=== PATIENT | male | born 1975 | race Caucasian/White ===

== ENCOUNTER 2017-10-07 12:12 | Emergency (ER) | payer OTHER ==
[~2017-10-07] VITALS: Ht 177.8 cm; Wt 88.5 kg
[2017-10-07 12:27] VITALS: BP 137/92
--- NOTE | 2017-10-07 12:32 | ER.PDOC ---
General Chief Complaint: General Complaint Stated Complaint: Low blood sugar Time seen by MD: 12:31 Source: patient Exam Limitations: no limitations History of Present Illness Initial Comments Pt is a diabetic on insulin, has ran out of his medicines and has not been able to use it since Tuesday Timing/Duration: 1 week Allergies: Coded Allergies: Penicillins (Verified Allergy, Mild, Hives, 10/07/17) Past Medical History Medical History: diabetes Surgical History: other Social History Smoking: non-smoker Alcohol Use: none Drug Use: none Constitutional: malaise EENTM: no symptoms reported Respiratory: no symptoms reported Cardiovascular: no symptoms reported Gastrointestinal: no symptoms reported Genitourinary: no symptoms reported Musculoskeletal: no symptoms reported Skin: no symptoms reported Endocrine: see HPI Hematologic/Lymphatic: no symptoms reported Physical Exam General Appearance: alert, no distress Skin: warm/dry, nml color Extremities: non-tender, nml ROM, no edema EENT: eyes nml inspection, lips/gums nml, pharynx nml Neck: trachea midline, no swelling Respiratory: no resp. distress, breath sounds nml CVS: reg. rate & rhythm, heart sounds nml Abdomen: non-tender, no organomegaly Rectal: non-tender NEURO/PSYCH: oriented x 3, CN's nml as tested, motor nml, sensation nml, mood/ affect nml Departure Time of Disposition: 13:54 Disposition: 01 HOME, SELF-CARE Impression: Primary Impression: Diabetes Additional Impression: Diabetes mellitus with hyperglycemia, without long-term current use of insulin Condition: Stable Patient Instructions: 2400 Calorie Diet for Diabetes Meal Planning, Diabetes Meal Planning Guide, How to Avoid Diabetes Problems Referrals: PCP,UNKNOWN (PCP) PRIMARY CARE PROVIDER Duration or Time Spent with Pa: TOMER MILLER MD Oct 07, 2017 12:32
[2017-10-07] MEDS ORDERED: NS 1000ML 1,000 ML STA (12:37)
[2017-10-07] MEDS ORDERED: NS 1000ML 1,000 ML ONE (12:39)
[2017-10-07 12:55] LABS: BASOPHIL % 0.1 % (0.0-0.2); EOSINOPHIL # 0.1 10^3/uL (0.0-0.2); EOSINOPHIL % 1.1 % (0.0-5.0); HEMOGLOBIN 13.7 g/dL (13.9-16.3); LYMPHOCYTES # 1.9 10^3/uL (1.0-4.8); MEAN CELL HGB 28.5 pg (26-34); MEAN CORP VOLUME 81.3 fL (78-100); MEAN PLATELET VOLUME 11.7 fL (7.8-11.0); MONOCYTES # 0.6 10^3/uL (0.3-0.8); MONOCYTES % 7.4 % (5.0-12.0); RED CELL DISTRIBUTION WIDTH 12.7 % (11.5-14.5); WHITE BLOOD CELL 7.6 10^3/uL (4.5-11.0)
[2017-10-07 13:10] LABS: CARBON DIOXIDE 26.3 mmol/L (20.0-32)
[2017-10-07 13:13] LABS: BILIRUBIN,URINE NEGATIVE (NEGATIVE); UROBILINOGEN,URINE NORMAL (NEGATIVE)
[2017-10-07 13:14] LABS: APPEARANCE,URINE CLEAR (CLEAR); UA COLOR STRAW (YELLOW)
[2017-10-07] MEDS ORDERED: HUMULIN R ONE (13:25)
[2017-10-07] MEDS ORDERED: HUMULIN R SQ ONE (13:30)
--- NOTE | 2017-10-07 13:50 | NUR ---
BLOOD GLUCOSE BEDSIDE GLUCOSE 337, DOCTOR NOTIFIED.
[2017-10-07 14:15] VITALS: BP 137/92
== END 2017-10-07 14:11 | disposition home or self-care (01) ==
LOC: ER 12:12
DX: E11.65 Type 2 diabetes mellitus with hyperglycemia (principal); Z79.4 Long term (current) use of insulin; Z88.0 Allergy status to penicillin
CPT/HCPCS: 36415; 80053; 81002; 82948; 85025; 96372; 99284; J1815; J7030